=== PATIENT | female | born 1990 | race Caucasian/White ===

== ENCOUNTER 2017-06-18 20:55 | Emergency (ER) | payer OTHER, MEDICAID ==
--- NOTE | 2017-06-18 21:20 | EDM.PDOC ---
<Kayla Galvez - Last Filed: 06/18/17 21:51> ED HPI GENERAL MEDICAL PROBLEM - General Chief Complaint: Upper Extremity Injury/Pain Stated Complaint: PT HURT LT HAND AT WORK Time Seen by Provider: 06/18/17 21:15 Source of Information: Reports: Patient History Limitations: Reports: No Limitations - History of Present Illness INITIAL COMMENTS - FREE TEXT/NARRATIVE: HISTORY AND PHYSICAL: [] 26-year-old female presenting with injury to her left hand fingers History of Present Illness: [] Patient was at work was opening a door and fingers were crushed in the door Incident occurred 1 hour prior to coming to the ED Review of Systems: As per history of present illness and below otherwise all systems reviewed and negative. Past medical history: As per history of present illness and as reviewed below otherwise noncontributory. Surgical history: As per history of present illness and as reviewed below otherwise noncontributory. Social history: No reported history of drug or alcohol abuse. Family history: As per history of present illness and as reviewed below otherwise noncontributory. Physical exam: Alert and oriented nontoxic in appearance answering questions appropriately in full sentences HEENT: Atraumatic, normocehpalic, pupils reactive, negative for conjunctival pallor or scleral icterus, mucous membranes moist, throat clear, neck supple, nontender, trachea midline. Lungs: Clear to auscultation, breath sounds equal bilaterally, chest non tender. Heart: S1S2, regular, negative for clicks, rubs, or JVD. Abdomen: Soft, nondistended, nontender. Negative for masses or hepatossplenmegaly. Negative for costovertebral tenderness. Pelvis: Stable nontender. Genitourinary: Deferred. Rectal: Deferred Extremities: First and second finger on her left hand the distal portion where it was caught in the door, patient states she can't move them due to pain, negative for cords or calf pain. Radial pulses intact, capillary refill less than 2 seconds. Neurovascular unremarkable. Neuro: Awake, alert, oriented. Cranial nerves II through XII unremarkable. Cerebellum unremarkable. Motor and sensory unremarkable throughout. Exam nonfocal. Discussed this case with Dr. David Peterson who will assume care of this patient Diagnostics: []X-ray fingers left hand Therapeutics: [] Impression: [Crush injury to fingers on left hand] Plan: [Discharged to home] Definitive disposition and diagnosis as appropriate pending reevaluation and review of above. 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: - Infectious Disease History Infectious Disease History: Reports: Other (See Below) Other Infectious Disease History: HSV2 - Past Surgical History Female Surgical History: Reports: Section Social & Family History - Family History Family Medical History: Noncontributory Respiratory: Reports: Asthma Endocrine/Metabolic: Reports: Diabetes, type II - Tobacco Use Smoking Status *Q: Current Every Day Smoker Years of Tobacco use: 6 Packs/Tins Daily: 1 - Recreational Drug Use Recreational Drug Use: No Review of Systems - Review of Systems Review Of Systems: ROS reveals no pertinent complaints other than HPI. ED EXAM, GENERAL - Physical Exam Exam: See Below (see dictation) Course - Vital Signs Last Recorded V/S: Last Vital Signs Temp 97.1 F 06/18/17 21:12 Pulse 81 06/18/17 21:12 Resp 18 06/18/17 21:12 BP 105/67 06/18/17 21:12 Pulse Ox 97 06/18/17 21:12 - Orders/Labs/Meds Orders: Active Orders 24 hr Category Date Time Status Fingers Multiple Lt [CR] Stat Exams 06/18/17 21:19 Taken Departure - Departure Time of Disposition: 21:52 Disposition: Home, Self-Care 01 Condition: Good Clinical Impression: Crushing injury of finger of left hand - Discharge Information Referrals: PCP,None [Primary Care Provider] - Forms: ED Department Discharge Additional Instructions: ibuprofen as needed recheck as needed <David Peterson - Last Filed: 06/18/17 23:16> ED HPI GENERAL MEDICAL PROBLEM - History of Present Illness INITIAL COMMENTS - FREE TEXT/NARRATIVE: I spoke with patient and advised that there are no fractures seen on her xrays. Radiology dept reading is pending. Departure - Departure Time of Disposition: 23:15
[2017-06-18 23:20] VITALS: BP 97/56
--- NOTE | 2017-06-21 17:06 | CR ---
EXAM DATE: 06/18/17 PATIENT'S AGE: 26 Patient: DANIEL ROSE Facility: [place], [place] Site . Site : 1990 Study: XRay Extremity Left FINGERS [id number]/22/2017 10:34:47 PM Ordering Physician: Doctor Branch Final Report: INDICATION: Finger pain from crush injury TECHNIQUE: Finger radiographs 3 views left COMPARISON: None FINDINGS: Bones: Alignment is normal. No acute fractures or aggressive bone lesions are identified. Evaluation of the digits are limited by flexion on the frontal and oblique views. Joint spaces: The metacarpophalangeal and interphalangeal joints are normal in appearance. Soft tissues: Unremarkable. No radiopaque foreign bodies are noted. IMPRESSION: 1. No acute osseous injuries are identified. Dictated by Supa Gonzalez MD @ 06/18/2017 11:08:16 PM Dictated by: Supa Gonzalez MD @ 06/18/2017 23:08:18 (Electronic Signature) Report Signed by Proxy. EMY
== END 2017-06-18 23:23 | disposition home or self-care (01) ==
LOC: MW.ED 20:55
DX: S67.191A Crushing injury of left index finger, initial encounter (principal); S67.02XA Crushing injury of left thumb, initial encounter; F17.210 Nicotine dependence, cigarettes, uncomplicated; W23.1XXA Caught, crushed, jammed, or pinched between stationary objects, initial encounter
CPT/HCPCS: 73140-26-LT; 73140-LT; 99282; 99283

== ENCOUNTER 2018-06-18 00:25 | Emergency (ER) | payer MEDICAID, OTHER ==
[2018-06-18] MEDS ORDERED: Sodium Chloride 0.9% 1,000 ML IV ONE (00:27)
[2018-06-18] MEDS ORDERED: Ondansetron 4 MG/2 ML SDV IVPUSH ONE (00:27)
[2018-06-18] MEDS ORDERED: Pantoprazole 40 MG Vial IVPUSH ONE (00:27)
--- NOTE | 2018-06-18 00:29 | EDM.PDOC ---
ED HPI GENERAL MEDICAL PROBLEM - General Chief Complaint: Drug or Alcohol Abuse Stated Complaint: AMBULANCE Time Seen by Provider: 06/18/18 00:29 Source of Information: Reports: Patient, EMS - History of Present Illness INITIAL COMMENTS - FREE TEXT/NARRATIVE: HISTORY AND PHYSICAL: History of present illness: [Patient arrives via ambulance from the bar and is clinically intoxicated Last drink was one half hours prior, she is somewhat belligerent but otherwise in no distress No fever chills sweats no chest pain shortness breath headache dizziness or palpitation no bowel or urine symptoms ] Review of systems: As per history of present illness and below otherwise all systems reviewed and negative. Past medical history: As per history of present illness and as reviewed below otherwise noncontributory. Surgical history: As per history of present illness and as reviewed below otherwise noncontributory. Social history: No reported history of drug or alcohol abuse. Family history: As per history of present illness and as reviewed below otherwise noncontributory. Physical exam: HEENT: Atraumatic, normocephalic, pupils reactive, negative for conjunctival pallor or scleral icterus, mucous membranes moist, throat clear, neck supple, nontender, trachea midline. Lungs: Clear to auscultation, breath sounds equal bilaterally, chest nontender. Heart: S1S2, regular, negative for clicks, rubs, or JVD. Abdomen: Soft, nondistended, nontender. Negative for masses or hepatosplenomegaly. Negative for costovertebral tenderness. Pelvis: Stable nontender. Genitourinary: Deferred. Rectal: Deferred. Extremities: Atraumatic, negative for cords or calf pain. Neurovascular unremarkable. Neuro: Awake, alert, oriented. Cranial nerves II through XII unremarkable. Cerebellum unremarkable. Motor and sensory unremarkable throughout. Exam nonfocal. Diagnostics: [CBC CMP UA drug screen Patient would not provide urine, lower EKG or chest x-ray ] Therapeutics: [1 L normal saline bolus Zofran 8 mg IV ] Prescription for potassium 20 mEq by mouth daily #5 no refill Impression: [Alcohol intoxication Hypokalemia Patient remains alert 1.5 hours after his last drink Discharged in stable condition] Definitive disposition and diagnosis as appropriate pending reevaluation and review of above. - Related Data Allergies Allergy/AdvReac Type Severity Reaction Status Date / Time No Known Allergies Allergy Verified 06/18/18 00:32 Home Meds: Home Meds . 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: - Infectious Disease History Infectious Disease History: Reports: Other (See Below) Other Infectious Disease History: HSV2 - Past Surgical History Female Surgical History: Reports: Section Social & Family History - Family History Family Medical History: Noncontributory Respiratory: Reports: Asthma Endocrine/Metabolic: Reports: Diabetes, type II - Caffeine Use Caffeine Use: Reports: Coffee Caffeine Use Comment: 1-2cups/day ED ROS GENERAL - Review of Systems Review Of Systems: See Below ED EXAM, GENERAL - Physical Exam Exam: See Below Course - Vital Signs Last Recorded V/S: Last Vital Signs Temp 97.1 F 06/18/18 00:26 Pulse 86 06/18/18 00:26 Resp 20 06/18/18 00:26 BP 96/65 06/18/18 00:26 Pulse Ox 98 06/18/18 00:26 - Orders/Labs/Meds Orders: Active Orders 24 hr Category Date Time Status EKG Documentation Completion [RC] STAT Care 06/18/18 00:27 Active Chest 1V Frontal [CR] Stat Exams 06/18/18 00:27 Ordered DRUG SCREEN, URINE [URCHEM] Stat Lab 06/18/18 00:27 Ordered UA W/MICROSCOPIC [URIN] Stat Lab 06/18/18 00:27 Ordered Sodium Chloride 0.9% [Normal Saline] 1,000 ml Med 06/18/18 00:27 Active IV STAT Medication Orders Sodium Chloride (Normal Saline) 1,000 mls @ 999 mls/hr IV STAT ONE Stop: 06/18/18 01:27 Last Admin: 06/18/18 00:40 Dose: 999 mls/hr Labs: Laboratory Tests 06/18/18 06/18/18 Range/Units 00:25 00:25 WBC 10.41 (4.0-11.0) K/uL RBC 4.01 L (4.30-5.90) M/uL Hgb 12.8 (12.0-16.0) g/dL Hct 38.1 (36.0-46.0) % MCV 95.0 (80.0-98.0) fL MCH 31.9 (27.0-32.0) pg MCHC 33.6 (31.0-37.0) g/dL RDW Std Deviation 39.1 (28.0-62.0) fl RDW Coeff [place] 11 (11.0-15.0) % Plt Count 247 (150-400) K/uL MPV 10.60 (7.40-12.00) fL Neut % (Auto) 53.5 (48.0-80.0) % Lymph % (Auto) 37.9 (16.0-40.0) % [place] % (Auto) 7.1 (0.0-15.0) % Eos % (Auto) 1.2 (0.0-7.0) % Baso % (Auto) 0.3 (0.0-1.5) % Neut # (Auto) 5.6 (1.4-5.7) K/uL Lymph # (Auto) 4.0 H (0.6-2.4) K/uL [place] # (Auto) 0.7 (0.0-0.8) K/uL Eos # (Auto) 0.1 (0.0-0.7) K/uL Baso # (Auto) 0.0 (0.0-0.1) K/uL Sodium 139 (136-145) mmol/L Potassium 2.7 L (3.5-5.1) mmol/L Chloride 103 (98-107) mmol/L Carbon Dioxide 23.8 (21.0-32.0) mmol/L BUN 6 L (7.0-18.0) mg/dL Creatinine 0.7 (0.6-1.0) mg/dL Est Cr Clr Drug Dosing 90.96 mL/min Estimated GFR (MDRD) > 60.0 ml/min Glucose 117 H (74-106) mg/dL Calcium 9.2 (8.5-10.1) mg/dL Total Bilirubin 0.2 (0.2-1.0) mg/dL AST 10 L (15-37) IU/L ALT 9 L (14-63) IU/L Alkaline Phosphatase 44 L (46-116) U/L Troponin I < 0.050 (0.000-0.056) ng/mL Total Protein 7.6 (6.4-8.2) g/dL Albumin 4.5 (3.4-5.0) g/dL Globulin 3.1 (2.0-3.5) g/dL Albumin/Globulin Ratio 1.5 (1.3-2.8) Ethyl Alcohol 285 mg/dL Meds: Medications Generic Name Dose Route Start Last Admin Trade Name Freq PRN Reason Stop Dose Admin Sodium Chloride 1,000 mls @ 999 mls/hr 06/18/18 00:27 06/18/18 00:40 Normal Saline IV 06/18/18 01:27 999 mls/hr STAT ONE Administration Discontinued Medications Generic Name Dose Route Start Last Admin Trade Name Freq PRN Reason Stop Dose Admin Ondansetron HCl 8 mg 06/18/18 00:27 06/18/18 00:40 Zofran IVPUSH 06/18/18 00:28 8 mg ONETIME ONE Administration Pantoprazole Sodium 80 mg 06/18/18 00:27 06/18/18 00:40 Protonix Iv IVPUSH 06/18/18 00:28 80 mg .BOLUS ONE Administration Promethazine HCl 25 mg 06/18/18 01:02 Phenergan IM 06/18/18 01:03 ONETIME ONE Departure - Departure Time of Disposition: 01:16 Disposition: Home, Self-Care 01 Condition: Fair Clinical Impression: Alcohol abuse - Discharge Information Forms: ED Department Discharge Additional Instructions: The following information is given to patients seen in the emergency department who are being discharged to home. This information is to outline your options for follow-up care. We provide all patients seen in our emergency department with a follow-up referral. The need for follow-up, as well as the timing and circumstances, are variable depending upon the specifics of your emergency department visit. If you don't have a primary care physician on staff, we will provide you with a referral. We always advise you to contact your personal physician following an emergency department visit to inform them of the circumstance of the visit and for follow-up with them and/or the need for any referrals to a consulting specialist. The emergency department will also refer you to a specialist when appropriate. This referral assures that you have the opportunity for follow-up care with a specialist. All of these measure are taken in an effort to provide you with optimal care, which includes your follow-up. Under all circumstances we always encourage you to contact your private physician who remains a resource for coordinating your care. When calling for follow-up care, please make the office aware that this follow-up is from your recent emergency room visit. If for any reason you are refused follow-up, please contact the [facility] emergency department at and asked to speak to the emergency department charge nurse. - My Orders Last 24 Hours: My Active Orders 06/18/18 00:27 EKG Documentation Completion [RC] STAT Chest 1V Frontal [CR] Stat DRUG SCREEN, URINE [URCHEM] Stat UA W/MICROSCOPIC [URIN] Stat Sodium Chloride 0.9% [Normal Saline] 1,000 ml IV STAT - Assessment/Plan Last 24 Hours: My Active Orders 06/18/18 00:27 EKG Documentation Completion [RC] STAT Chest 1V Frontal [CR] Stat DRUG SCREEN, URINE [URCHEM] Stat UA W/MICROSCOPIC [URIN] Stat Sodium Chloride 0.9% [Normal Saline] 1,000 ml IV STAT
[2018-06-18] MEDS ORDERED: Promethazine 25 MG/ML SDV IM ONE (01:02)
[2018-06-18 01:05] LABS: CHLORIDE,CL 103 mmol/L (98-107); SODIUM,NA 139 mmol/L (136-145)
[2018-06-18] MEDS ORDERED: Potassium Chloride 20 MEQ Tab.ER PO ONE (01:17)
[2018-06-18 01:43] VITALS: BP 106/74
== END 2018-06-18 01:21 | disposition home or self-care (01) ==
LOC: MW.ED 00:25
DX: F10.129 Alcohol abuse with intoxication, unspecified (principal); Y90.8 Blood alcohol level of 240 mg/100 ml or more; E87.6 Hypokalemia
CPT/HCPCS: 80053; 84484; 85025; 96361; 96374; 96375; 99283; A9270; C9113; G0480; J2405; J7040

== ENCOUNTER 2019-07-08 12:04 | Emergency (ER) | payer MEDICAID ==
[2019-07-08 12:18] VITALS: BP 116/65; PULSE 84
--- NOTE | 2019-07-08 12:39 | EDM.PDOC ---
ED HPI GENERAL MEDICAL PROBLEM - General Chief Complaint: General Stated Complaint: CHEST PAIN Time Seen by Provider: 07/08/19 12:09 Source of Information: Reports: Patient History Limitations: Reports: No Limitations - History of Present Illness INITIAL COMMENTS - FREE TEXT/NARRATIVE: HISTORY AND PHYSICAL: History of present illness: Patient is a 28-year-old female who presents to the ED today for concern of right-sided rib/chest pain x 3 days. Patient states she was seen Wednesday at [facility] and was treated for a sinus infection because she is having nasal congestion and cough for about 2 weeks. Patient states she was placed on amoxicillin and is steroid. Patient states she's noticed some relief of her sinus concerns. Patient states starting Wednesday night she began having right- sided rib pain which is worse when she presses on the ribs and patient states seems to be worse at night. Patient denies any trauma or injury to the rib/ chest area. Patient denies any health history or any other symptoms or concerns at this time. Patient denies fever, chills, shortness of breath. Denies headache, neck stiff ness, change in vision, syncope, or near syncope. Denies nausea, vomiting, abdominal pain, diarrhea, constipation, or dysuria. Has not noted any blood in urine or stool. Patient has been eating and drinking appropriately. Review of systems: As per history of present illness and below otherwise all systems reviewed and negative. Past medical history: As per history of present illness and as reviewed below otherwise noncontributory. Surgical history: As per history of present illness and as reviewed below otherwise noncontributory. Social history: See social history for further information Family history: As per history of present illness and as reviewed below otherwise noncontributory. Physical exam: General: Patient is alert, oriented, and in no acute distress. Patient sitting comfortably on exam table. HEENT: Atraumatic, normocephalic, pupils equal and reactive bilaterally, negative for conjunctival pallor or scleral icterus, mucous membranes moist, TMs normal bilaterally, throat clear, neck supple, nontender, trachea midline. No drooling or trismus noted. No meningeal signs. No hot potato voice noted. Lungs: Mild wheezing of the right lower lobe, otherwise clear to auscultation, breath sounds equal bilaterally. Patient does have moderate pain with palpation of ribs 8 and 9 on the right sided anterior surface. Wet cough on exam Heart: S1S2, regular rate and rhythm without overt murmur Abdomen: Soft, nondistended, nontender. Negative for masses or hepatosplenomegaly. Negative for costovertebral tenderness. Pelvis: Stable nontender. Genitourinary: Deferred. Rectal: Deferred. Skin: Intact, warm, dry. No lesions or rashes noted. Extremities: Atraumatic, negative for cords or calf pain. Neurovascular unremarkable. Neuro: Awake, alert, oriented. Cranial nerves II through XII unremarkable. Cerebellum unremarkable. Motor and sensory unremarkable throughout. Exam nonfocal. Notes: Discussed the importance for follow-up with a primary care provider. Voices understanding and is agreeable to plan of care. Denies any further questions or concerns at this time. Diagnostics: CBC, CMP, UA, Uhcg, EKG, CXR, strep, influenza, lipase Therapeutics: None Prescription: Levaquin Impression: Right lower lobe pneumonia Plan: 1. Stop taking Amoxicillin that has been prescribed to you. Take medication as prescribed. 2. You can alternate ibuprofen and Tylenol as directed for pain and discomfort. 3. Follow up with your primary care provider as discussed. Return to the ED as needed and as discussed. Definitive disposition and diagnosis as appropriate pending reevaluation and review of above. 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: - Infectious Disease History Infectious Disease History: Reports: None Other Infectious Disease History: HSV2 - Past Surgical History Head Surgeries/Procedures: Reports: None Female Surgical History: Reports: Section Social & Family History - Family History Family Medical History: Noncontributory Respiratory: Reports: Asthma Endocrine/Metabolic: Reports: Diabetes, type II - Tobacco Use Smoking Status *Q: Current Every Day Smoker Years of Tobacco use: 8 Packs/Tins Daily: 0.2 - Caffeine Use Caffeine Use: Reports: None Caffeine Use Comment: 1-2cups/day - Recreational Drug Use Recreational Drug Use: No ED ROS GENERAL - Review of Systems Review Of Systems: ROS reveals no pertinent complaints other than HPI. ED EXAM, GENERAL - Physical Exam Exam: See Below (See dictation) Course - Vital Signs Last Recorded V/S: Last Vital Signs Temp 97.6 F 07/08/19 12:14 Pulse 84 07/08/19 12:14 Resp 15 07/08/19 12:14 BP 116/65 07/08/19 12:14 Pulse Ox 98 07/08/19 12:14 - Orders/Labs/Meds Orders: Active Orders 24 hr Category Date Time Status EKG Documentation Completion [RC] STAT Care 07/08/19 12:27 Active CULTURE STREP A CONFIRMATION [] Stat Lab 07/08/19 12:42 Results STREP SCRN A RAPID W CULT CONF [] Stat Lab 07/08/19 12:42 Results Labs: Laboratory Tests 07/08/19 07/08/19 07/08/19 Range/Units 12:29 12:29 12:36 WBC 8.36 (4.0-11.0) K/uL RBC 4.25 L (4.30-5.90) M/uL Hgb 13.1 (12.0-16.0) g/dL Hct 40.9 (36.0-46.0) % MCV 96.2 (80.0-98.0) fL MCH 30.8 (27.0-32.0) pg MCHC 32.0 (31.0-37.0) g/dL RDW Std Deviation 44.1 (28.0-62.0) fl RDW Coeff of Lake 13 (11.0-15.0) % Plt Count 291 (150-400) K/uL MPV 10.60 (7.40-12.00) fL Neut % (Auto) 49.2 (48.0-80.0) % Lymph % (Auto) 37.7 (16.0-40.0) % Wheeler % (Auto) 11.5 (0.0-15.0) % Eos % (Auto) 1.1 (0.0-7.0) % Baso % (Auto) 0.5 (0.0-1.5) % Neut # (Auto) 4.1 (1.4-5.7) K/uL Lymph # (Auto) 3.2 H (0.6-2.4) K/uL Wheeler # (Auto) 1.0 H (0.0-0.8) K/uL Eos # (Auto) 0.1 (0.0-0.7) K/uL Baso # (Auto) 0.0 (0.0-0.1) K/uL Nucleated RBC % 0.0 /100WBC Nucleated RBCs # 0 K/uL Sodium (136-145) mmol/L Potassium (3.5-5.1) mmol/L Chloride (98-107) mmol/L Carbon Dioxide (21.0-32.0) mmol/L BUN (7.0-18.0) mg/dL Creatinine (0.6-1.0) mg/dL Est Cr Clr Drug Dosing mL/min Estimated GFR (MDRD) ml/min Glucose (74-106) mg/dL Calcium (8.5-10.1) mg/dL Total Bilirubin (0.2-1.0) mg/dL AST (15-37) IU/L ALT (14-63) IU/L Alkaline Phosphatase (46-116) U/L Troponin I (0.000-0.056) ng/mL Total Protein (6.4-8.2) g/dL Albumin (3.4-5.0) g/dL Globulin (2.6-4.0) g/dL Albumin/Globulin Ratio (0.9-1.6) Lipase (73-393) U/L Urine Color YELLOW Urine Appearance CLEAR Urine pH 7.0 (5.0-8.0) Ur Specific Earleton <= 1.005 (1.001-1.035) Urine Protein NEGATIVE (NEGATIVE) mg/dL Urine Glucose (UA) NEGATIVE (NEGATIVE) mg/dL Urine Ketones NEGATIVE (NEGATIVE) mg/dL Urine Occult Blood NEGATIVE (NEGATIVE) Urine Nitrite NEGATIVE (NEGATIVE) Urine Bilirubin NEGATIVE (NEGATIVE) Urine Urobilinogen 0.2 (<2.0) EU/dL Ur Leukocyte Esterase NEGATIVE (NEGATIVE) Urine HCG, Qual NEGATIVE (NEGATIVE) 07/08/19 07/08/19 Range/Units 12:36 12:36 WBC (4.0-11.0) K/uL RBC (4.30-5.90) M/uL Hgb (12.0-16.0) g/dL Hct (36.0-46.0) % MCV (80.0-98.0) fL MCH (27.0-32.0) pg MCHC (31.0-37.0) g/dL RDW Std Deviation (28.0-62.0) fl RDW Coeff of Lake (11.0-15.0) % Plt Count (150-400) K/uL MPV (7.40-12.00) fL Neut % (Auto) (48.0-80.0) % Lymph % (Auto) (16.0-40.0) % Wheeler % (Auto) (0.0-15.0) % Eos % (Auto) (0.0-7.0) % Baso % (Auto) (0.0-1.5) % Neut # (Auto) (1.4-5.7) K/uL Lymph # (Auto) (0.6-2.4) K/uL Wheeler # (Auto) (0.0-0.8) K/uL Eos # (Auto) (0.0-0.7) K/uL Baso # (Auto) (0.0-0.1) K/uL Nucleated RBC % /100WBC Nucleated RBCs # K/uL Sodium 144 (136-145) mmol/L Potassium 3.5 (3.5-5.1) mmol/L Chloride 105 (98-107) mmol/L Carbon Dioxide 29.1 (21.0-32.0) mmol/L BUN 9 (7.0-18.0) mg/dL Creatinine 0.8 (0.6-1.0) mg/dL Est Cr Clr Drug Dosing 91.57 mL/min Estimated GFR (MDRD) > 60.0 ml/min Glucose 99 (74-106) mg/dL Calcium 9.2 (8.5-10.1) mg/dL Total Bilirubin 0.4 (0.2-1.0) mg/dL AST 9 L (15-37) IU/L ALT 14 (14-63) IU/L Alkaline Phosphatase 54 (46-116) U/L Troponin I < 0.050 (0.000-0.056) ng/mL Total Protein 7.4 (6.4-8.2) g/dL Albumin 3.8 (3.4-5.0) g/dL Globulin 3.6 (2.6-4.0) g/dL Albumin/Globulin Ratio 1.1 (0.9-1.6) Lipase 75 (73-393) U/L Urine Color Urine Appearance Urine pH (5.0-8.0) Ur Specific Earleton (1.001-1.035) Urine Protein (NEGATIVE) mg/dL Urine Glucose (UA) (NEGATIVE) mg/dL Urine Ketones (NEGATIVE) mg/dL Urine Occult Blood (NEGATIVE) Urine Nitrite (NEGATIVE) Urine Bilirubin (NEGATIVE) Urine Urobilinogen (<2.0) EU/dL Ur Leukocyte Esterase (NEGATIVE) Urine HCG, Qual (NEGATIVE) Departure - Departure Time of Disposition: 13:49 Disposition: Home, Self-Care 01 Clinical Impression: Right lower lobe pneumonia Qualifiers: Pneumonia type: due to unspecified organism Qualified Code(s): J18.1 - Lobar pneumonia, unspecified organism - Discharge Information Referrals: PCP,Unknown [Primary Care Provider] - Forms: ED Department Discharge Additional Instructions: The following information is given to patients seen in the emergency department who are being discharged to home. This information is to outline your options for follow-up care. We provide all patients seen in our emergency department with a follow-up referral. The need for follow-up, as well as the timing and circumstances, are variable depending upon the specifics of your emergency department visit. If you don't have a primary care physician on staff, we will provide you with a referral. We always advise you to contact your personal physician following an emergency department visit to inform them of the circumstance of the visit and for follow-up with them and/or the need for any referrals to a consulting specialist. The emergency department will also refer you to a specialist when appropriate. This referral assures that you have the opportunity for follow-up care with a specialist. All of these measure are taken in an effort to provide you with optimal care, which includes your follow-up. Under all circumstances we always encourage you to contact your private physician who remains a resource for coordinating your care. When calling for follow-up care, please make the office aware that this follow-up is from your recent emergency room visit. If for any reason you are refused follow-up, please contact the [facility] Emergency Department at and asked to speak to the emergency department charge nurse. [facility] [address] [place] [address] [facility] [address] [place] [id number] 1. Stop taking Amoxicillin that has been prescribed to you prior. Take medication as prescribed. 2. You can alternate ibuprofen and Tylenol as directed for pain and discomfort. 3. Follow up with your primary care provider as discussed. Return to the ED as needed and as discussed. - My Orders Last 24 Hours: My Active Orders 07/08/19 12:27 EKG Documentation Completion [RC] STAT 07/08/19 12:42 CULTURE STREP A CONFIRMATION [RM] Stat STREP SCRN A RAPID W CULT CONF [] Stat - Assessment/Plan Last 24 Hours: My Active Orders 07/08/19 12:27 EKG Documentation Completion [RC] STAT 07/08/19 12:42 CULTURE STREP A CONFIRMATION [RM] Stat STREP SCRN A RAPID W CULT CONF [] Stat
[2019-07-08 13:12] LABS: BLOOD UREA NITROGEN,BUN 9 mg/dL (7.0-18.0); CARBON DIOXIDE,CO2 29.1 mmol/L (21.0-32.0); CHLORIDE,CL 105 mmol/L (98-107); GLUCOSE RANDOM 99 mg/dL (74-106); POTASSIUM,K 3.5 mmol/L (3.5-5.1); SODIUM,NA 144 mmol/L (136-145)
--- NOTE | 2019-07-08 13:27 | CR ---
INDICATION: Shortness of breath TECHNIQUE: Chest 2 views. COMPARISON: None. FINDINGS: Cardiovascular and mediastinum: Heart size and vasculature are normal in caliber and appearance. Mediastinum is within normal limits. Lungs and pleural spaces: Lungs are clear. No sign of infiltrate or mass. No sign of pleural effusion. No pneumothorax. Bones and soft tissues: No significant findings. IMPRESSION: Unremarkable chest. Dictated by: Gama Melgar MD @ 07/08/2019 13:24:31 (Electronically Signed)
== END 2019-07-08 13:59 | disposition home or self-care (01) ==
LOC: MW.ED 12:04
DX: J18.1 Lobar pneumonia, unspecified organism (principal); F17.210 Nicotine dependence, cigarettes, uncomplicated
CPT/HCPCS: 36415; 71046; 71046-26; 80053; 81003; 81025; 83690; 84484; 85025; 87081; 87804; 87880-QW; 93005; 99284-25

== ENCOUNTER 2021-08-29 16:18 | Day surgery (SDC) | payer MEDICAID ==
[~2021-08-29 16:18] MED LIST: Bupivacaine 0.25% 10 ML SDV ONE
[2021-08-29] MEDS ORDERED: Propofol 200 MG/20 ML SDV ONE (16:31)
[2021-08-29] MEDS ORDERED: Midazolam 1 MG/ML 2 ML SDV ONE (16:31)
[2021-08-29] MEDS ORDERED: fentaNYL 250 MCG/5 ML SDV ONE (16:32)
[2021-08-29] MEDS ORDERED: Glycopyrrolate 0.2 MG/ML SDV ONE (16:33)
[2021-08-29] MEDS ORDERED: Ketorolac 30 MG/ML SDV ONE (16:33)
[2021-08-29] MEDS ORDERED: Ondansetron 4 MG/2 ML SDV ONE ×2 (16:33→20:27)
[2021-08-29] MEDS ORDERED: Rocuronium Bromide 50 MG/5 ML Syringe ONE (16:33)
[2021-08-29] MEDS ORDERED: Sugammadex Sodium 200 MG/2 ML VIAL ONE (16:33)
[2021-08-29] MEDS ORDERED: Lidocaine 2% 5 ML SDV ONE (16:33)
[2021-08-29] MEDS: Lactated Ringers 1,000 ML IV SCH ×2 (17:04→20:57)
[2021-08-29] MEDS ORDERED: Acetaminophen 1,000 MG in Premix Bag 1 BAG IV PRN (17:07)
--- NOTE | 2021-08-29 17:07 | PCM.PREANE ---
Preanesthetic Assessment - Anesthesia/Transfusion/Family Hx Anesthesia History: Prior Anesthesia Without Reaction Family History of Anesthesia Reaction: No Transfusion History: No Prior Transfusion(s) - Review of Systems General: No Symptoms Pulmonary: No Symptoms Cardiovascular: No Symptoms Gastrointestinal: No Symptoms Neurological: No Symptoms Other: Reports: None - Physical Assessment NPO Status Date: 08/29/21 NPO Status Time: 00:05 Vital Signs: Last Vital Signs Temp 37.1 C 08/29/21 16:29 Pulse 87 08/29/21 16:29 Resp 18 08/29/21 16:29 BP 96/63 08/29/21 16:29 Pulse Ox 100 08/29/21 16:29 Height: 1.6 m Weight: 48.308 kg ASA Class: 1E - Lab Values: Laboratory Last Values SARS-CoV-2 RNA (IVY) NEGATIVE (NEGATIVE) 08/29/21 16:20 - Allergies Allergies/Adverse Reactions: Allergies Allergy/AdvReac Type Severity Reaction Status Date / Time No Known Allergies Allergy Verified 08/29/21 16:41 - Acknowledgements Anesthesia Type Planned: General Anesthesia Pt an Appropriate Candidate for the Planned Anesthesia: Yes Alternatives and Risks of Anesthesia Discussed w Pt/Guardian: Yes Pt/Guardian Understands and Agrees with Anesthesia Plan: Yes PreAnesthesia Questionnaire - Past Health History Medical/Surgical History: Denies Medical/Surgical History Gastrointestinal History: Reports: None Genitourinary History: Reports: None 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: Other OB/BYN History: X2 - Infectious Disease History Infectious Disease History: Reports: None Other Infectious Disease History: HSV2 - Past Surgical History Head Surgeries/Procedures: Reports: None Female Surgical History: Reports: Section - SUBSTANCE USE Tobacco Use Status *Q: Never Tobacco User Recreational Drug Use History: No - CURRENT (IN HOUSE) MEDS Current Meds: Current Medications Lactated Ringer's (Ringers, Lactated) 1,000 mls @ 125 mls/hr IV ASDIRECTED RUBINA Discontinued Medications Bupivacaine HCl (Bupivacaine 0.25% 10 Ml Sdv) Confirm Administered Dose 20 ml .ROUTE .STK-MED ONE Stop: 08/29/21 16:17 Fentanyl (Fentanyl 250 Mcg/5 Ml Sdv) Confirm Administered Dose 250 mcg .ROUTE .STK-MED ONE Stop: 08/29/21 16:33 Glycopyrrolate (Glycopyrrolate 0.2 Mg/Ml Sdv) Confirm Administered Dose 0.2 mg .ROUTE .STK-MED ONE Stop: 08/29/21 16:34 Ketorolac Tromethamine (Ketorolac 30 Mg/Ml Sdv) Confirm Administered Dose 30 mg .ROUTE .STK-MED ONE Stop: 08/29/21 16:34 Lidocaine (Lidocaine 2% 5 Ml Sdv) Confirm Administered Dose 5 ml .ROUTE .STK-MED ONE Stop: 08/29/21 16:34 Midazolam HCl (Midazolam 1 Mg/Ml 2 Ml Sdv) Confirm Administered Dose 2 mg .ROUTE .STK-MED ONE Stop: 08/29/21 16:32 Ondansetron HCl (Ondansetron 4 Mg/2 Ml Sdv) Confirm Administered Dose 4 mg .ROUTE .STK-MED ONE Stop: 08/29/21 16:34 Propofol (Propofol 200 Mg/20 Ml Sdv) Confirm Administered Dose 200 mg .ROUTE .STK-MED ONE Stop: 08/29/21 16:32 Rocuronium Dutton (Rocuronium Dutton 50 Mg/5 Ml Syringe) Confirm Administered Dose 50 mg .ROUTE .STK-MED ONE Stop: 08/29/21 16:34 Sugammadex Sodium (Sugammadex Sodium 200 Mg/2 Ml Vial) Confirm Administered Dose 200 mg .ROUTE .STK-MED ONE Stop: 08/29/21 16:34
[2021-08-29] MEDS ORDERED: ceFAZolin 1 GM Vial ONE (19:01)
[2021-08-29] MEDS ORDERED: Water For Injection, Sterile 20 ML ONE (19:01)
[2021-08-29] MEDS: fentaNYL 100 MCG/2 ML SDV IVPUSH PRN ×2 (20:20→20:49)
--- NOTE | 2021-08-29 20:20 | PCM.POSTAN ---
POST ANESTHESIA ASSESSMENT - MENTAL STATUS Mental Status: Alert - VITAL SIGNS Vital Signs: Last Vital Signs Temp 37.1 C 08/29/21 16:29 Pulse 87 08/29/21 16:29 Resp 18 08/29/21 16:29 BP 96/63 08/29/21 16:29 Pulse Ox 100 08/29/21 16:29 - RESPIRATORY Respiratory Status: Respiratory Rate WNL - CARDIOVASCULAR CV Status: Pulse Rate WNL - GASTROINTESTINAL GI Status: No Symptoms - POST OP HYDRATION Hydration Status: Adequate & Stable
[2021-08-29] MEDS ORDERED: Ondansetron 4 MG/2 ML SDV IVPUSH PRN (20:22)
[2021-08-29] MEDS ORDERED: Acetaminophen/oxyCODONE 325-5 MG Tab PO PRN ×2 (20:22)
[2021-08-29] MEDS ORDERED: Promethazine 25 MG/ML SDV IM PRN (20:22)
[2021-08-29] MEDS ORDERED: Morphine 4 MG/ML VIAL IVPUSH PRN (20:22)
[2021-08-29] MEDS ORDERED: Ketorolac 30 MG/ML SDV IVPUSH PRN (20:22)
--- NOTE | 2021-08-29 20:24 | PCM48HPAN ---
Post Anesthesia Note - EVALUATION WITHIN 48HRS OF ANESTHETIC Vital Signs in Normal Range: Yes Patient Participated in Evaluation: Yes Respiratory Function Stable: Yes Airway Patent: Yes Cardiovascular Function Stable: Yes Hydration Status Stable: Yes Pain Control Satisfactory: Yes Nausea and Vomiting Control Satisfactory: Yes Mental Status Recovered: Yes Vital Signs: Last Vital Signs Temp 37.1 C 08/29/21 16:29 Pulse 87 08/29/21 16:29 Resp 18 08/29/21 16:29 BP 96/63 08/29/21 16:29 Pulse Ox 100 08/29/21 16:29
[2021-08-29] MEDS ORDERED: Ketorolac 30 MG/ML SDV IVPUSH ONE (20:30)
--- NOTE | 2021-08-29 20:31 | PCM.OPNOTE ---
- General Post-Op/Procedure Note Date of Surgery/Procedure: 08/29/21 Operative Procedure(s): Dilatation and Curettage. Laparoscopic left Salphingectomy Findings: EUA- 8 weeks sized anteverted uterus Laparoscopy showed left tubal ectopic with ectopic occupying entire left tube Pre Op Diagnosis: Left Ectopic Post-Op Diagnosis: same Anesthesia Technique: General ET Tube Primary Surgeon: Lauri Morales Secondary Surgeon: Kaden Delgado Anesthesia Provider: Bandar Gonzalez Pathology: Left tube with ectopic Endometrial curettings Fluid Replacement, Intraop: 800 EBL in mLs: 20 Complications: None Condition: Good Free Text/Narrative:: Intake & Output 08/29/21 08/29/21 08/29/21 06:59 14:59 22:59 Output Total 100 Balance -100
[2021-08-30] MEDS ORDERED: Ketorolac 30 MG/ML SDV IVPUSH PRN ×2 (00:43→03:00)
[2021-08-30 01:45] VITALS: BP 89/52; PULSE 74
--- NOTE | 2021-08-30 20:51 | OR ---
SURGEON: ANASTACIA GUZMAN DATE OF PROCEDURE: 08/29/2021 PREOPERATIVE DIAGNOSIS: 30-year-old with suspected ectopic . POSTOPERATIVE DIAGNOSIS: 30-year-old with suspected ectopic . PROCEDURE: Laparoscopic left salpingectomy and dilatation and curettage. ESTIMATED BLOOD LOSS: 20. IV FLUIDS: 800. ANESTHESIA: General. CHIEF TALENT OFFICER: Kaden Delgado MD NOTES AND FINDINGS: EUA showed about 8-week size anteverted uterus. The laparoscopy showed left- sided ectopic with ectopic occupying entire left tube. BRIEF HISTORY ABOUT THE PATIENT: Patient came in for an appointment secondary to spotting in . She had an ultrasound done, which showed a complex mass in the left adnexa. No intrauterine was seen, however, endometrium had some cystic areas within it. HCG was done, was 11,000, and progesterone was 6. As a result, patient was counseled for laparoscopic salpingectomy with dilatation and curettage, and patient agreed. DESCRIPTION OF PROCEDURE: Patient was taken to the operating room where general anesthesia was performed without difficulty. She was prepared and draped in the dorsal lithotomy position with the Yamil stirrups. The cervix was exposed with a speculum. The anterior lip of the cervix was grasped with an Allis. The cervical os was dilated to accommodate the uterine manipulator, which was placed without difficulty. Then, attention was placed to the abdomen. An umbilical incision was made after injection of 0.25% Marcaine. The abdomen was entered in with low pressure with the fiberoptic trocar. Entry was confirmed with a low intraabdominal pressure. Pneumoperitoneum was obtained up to 15 mmHg. Then, right and left lower quadrant ports were placed in 2 fingerbreadths medial and superior to the anterior superior iliac spine. The tube was grabbed at the fimbrial end and cut and coagulated with the LigaSure device all the way to the cornua. The incision was checked, was noted to be hemostatic. The abdomen was irrigated and fluid was removed. Then, a 12 mm trocar was placed in at the umbilicus after extension of the umbilical incision. The bag was now placed and the specimen was placed in the bag and removed without any difficulty. The umbilical incision was then closed with a Michael-Goins. All the trocars were removed. Incision was closed with 3-0 Monocryl. Attention was then placed to the cervix where the sharp curettage was done. Specimen was sent for pathology. The patient was awoken from general anesthesia, was taken to recovery room in stable condition. She will follow up with Dr. Lepe in 2 weeks. EMMA SIMMS /[id number] MTDD
== END 2021-08-30 02:05 | disposition home or self-care (01) ==
LOC: MW.SDS 16:18 → MW.MS 16:18 → MW.SDS 08-30 02:05
PROVIDERS: ATTEND Obstetrics & Gynecology
DX: O00.102 Left tubal pregnancy without intrauterine pregnancy (principal); F17.210 Nicotine dependence, cigarettes, uncomplicated; O26.851 Spotting complicating pregnancy, first trimester; Z01.812 Encounter for preprocedural laboratory examination; Z98.890 Other specified postprocedural states; Z79.899 Other long term (current) drug therapy; Z20.822 Contact with and (suspected) exposure to COVID-19
CPT/HCPCS: 59151; 87635; J0131; J0690; J1885; J2250; J2370; J2405; J2704; J3010; J3490; J7030; J7120; 00840; U0002

== ENCOUNTER 2021-09-29 17:50 | Emergency (ER) | payer MEDICAID ==
[2021-09-29] MEDS ORDERED: Sodium Chloride 0.9% 10 ML Syringe FLUSH PRN (19:31)
[2021-09-29] MEDS ORDERED: Sodium Chloride 0.9% 2.5 ML Syringe FLUSH PRN (19:31)
--- NOTE | 2021-09-29 20:04 | US ---
INDICATION: Vaginal bleeding, recent surgery for ectopic COMPARISON: None TECHNIQUE: Multiple grayscale sonographic images of the pelvis. Scanning was performed transabdominally and transvaginally. FINDINGS: The uterus measures 7.7 x 5.0 x 4.0 cm. There is normal myometrial echotexture. The endometrial stripe is normal in thickness, measuring up to 0.4 cm. The right ovary measures 3.1 x 1 x 2.2 cm. The left ovary measures 2.9 x 2.1 x 2.0 cm. Normal follicular changes are demonstrated bilaterally. Intact vascular flow is demonstrated to both ovaries by spectral Doppler interrogation. No significant free fluid is demonstrated in the pelvis. Limited views of the urinary bladder grossly unremarkable. IMPRESSION: Unremarkable sonographic appearance of the uterus and ovaries. Dictated by Felisa Rodríguez MD @ 09/29/2021 8:03:11 PM (Electronically Signed)
[2021-09-29 21:08] LABS: BLOOD UREA NITROGEN,BUN 10 mg/dL (7.0-18.0); CARBON DIOXIDE,CO2 27.4 mmol/L (21.0-32.0); CHLORIDE,CL 103 mmol/L (98-107); GLUCOSE RANDOM 97 mg/dL (74-106); POTASSIUM,K 4.6 mmol/L (3.5-5.1); SODIUM,NA 139 mmol/L (136-145)
--- NOTE | 2021-09-29 22:07 | EDM.PDOC ---
ED HPI GENERAL MEDICAL PROBLEM - General Chief Complaint: LIFE EDUCATOR Problem Stated Complaint: HEAVY BLEEDING Time Seen by Provider: 09/29/21 19:54 Source of Information: Reports: Patient History Limitations: Reports: No Limitations - History of Present Illness INITIAL COMMENTS - FREE TEXT/NARRATIVE: HISTORY AND PHYSICAL: History of present illness: Patient is a 30-year-old female who presents emergency room today with concern of heavy vaginal bleeding during her menstrual cycle over the past 3 days. Patient states that she has been bleeding through a tampon and a pad every hour and has been doing this consistently for the past 3 days. Patient states that she called her LIFE EDUCATOR provider and was instructed to come here to the emergency room due to the heavy bleeding. Patient states that in August, she had an ectopic at 9 weeks when they discovered it and states that she had to have surgery and had her left tube removed as a result. Patient states that she had some bleeding immediately following the surgery and the account of that is her first menstrual cycle. Patient states that however, this is her first actual menstrual cycle since the surgery. Patient states that she does not typically have heavy vaginal bleeding with her menstrual cycles and this is not typical for her. Patient denies any associated pain or discomfort. Patient denies fever, chills, chest pain, shortness of breath, or cough. Denies headache, neck stiff ness, change in vision, syncope, or near syncope. Denies nausea, vomiting, abdominal pain, diarrhea, constipation, or dysuria. Has not noted any blood in urine or stool. Patient has been eating and drinking appropriately. Review of systems: As per history of present illness and below otherwise all systems reviewed and negative. Past medical history: As per history of present illness and as reviewed below otherwise noncontributory. Surgical history: As per history of present illness and as reviewed below otherwise noncontributory. Social history: See social history for further information Family history: As per history of present illness and as reviewed below otherwise noncontributory. Physical exam: General: Patient is alert, oriented, and in no acute distress. Patient sitting comfortably on exam table. Vitals stable and reviewed by me. HEENT: Atraumatic, normocephalic, pupils equal and reactive bilaterally, negative for conjunctival pallor or scleral icterus, mucous membranes moist, throat clear, neck supple, nontender, trachea midline. No drooling or trismus noted. No meningeal signs. No hot potato voice noted. Lungs: Clear to auscultation, breath sounds equal bilaterally, chest nontender. Heart: S1S2, regular rate and rhythm without overt murmur Abdomen: Soft, nondistended, nontender. Negative for masses or hepatosplenomegaly. Negative for costovertebral tenderness. Pelvis: Stable nontender. Genitourinary: exam performed by DEANN Mcnair PA-C observed and supervised directly by me. External genitalia grossly unremarkable. There is a small - moderate amount of dark red blood in the vaginal vault with bleeding noted from the cervical os. Cervix is nontender. Uterus nontender. Rectal: Deferred. Skin: Intact, warm, dry. No lesions or rashes noted. Extremities: Atraumatic, negative for cords or calf pain. Neurovascular unremarkable. Neuro: Awake, alert, oriented. Cranial nerves II through XII unremarkable. Cerebellum unremarkable. Motor and sensory unremarkable throughout. Exam nonfocal. Medical Decision Making: Patient is an otherwise healthy 30 year old female who presents to the ED today with concern of menorrhagia with 1 tampon/1 pad per hour x 3 days with recent post op from ectopic in august. On arrival to the ED, patient is vitally stable and well-appearing on exam. exam does show that patient is having a small to moderate amount of dark red blood in the vaginal vault noted from the cervical os, remainder of exam is unremarkable. Will obtain lab work, transvaginal ultrasound. CBC does show red blood cells are mildly decreased at 3.85, however hemoglobin and hematocrit are within normal limits. CMP mild derangements are unremar kable. hCG is negative. Urinalysis does show 40 red blood cells, is otherwise negative. Transvaginal ultrasound unremarkable. Repeat H&H stable. I did call and speak to Dr. Josiane Lepe, LIFE EDUCATOR provider for [facility]. He would like patient to follow-up in the clinic and the nurse will call her tomorrow for an appointment time. Strict return precautions thoroughly discussed with patient. Discussed importance for follow-up with her LIFE EDUCATOR provider. Voices understanding and is agreeable to plan of care. Denies any further questions or concerns at this time. Diagnostics: CBC, CMP, hCG, urinalysis, transvaginal ultrasound repeat H&H Therapeutics: None Prescription: None Impression: Menorrhagia Plan: Follow-up with your LIFE EDUCATOR provider as discussed. Return to the ED as needed a nd as discussed. Definitive disposition and diagnosis as appropriate pending reevaluation and review of above. RLQ abd Pain Score (Numeric/FACES): 4 - Related Data Allergies Allergy/AdvReac Type Severity Reaction Status Date / Time No Known Allergies Allergy Verified 09/29/21 18:06 Home Meds: Home Meds . [No Known Home Meds] 09/29/21 [History] Past Medical History - Past Health History Medical/Surgical History: Denies Medical/Surgical History HEENT History: Reports: None Cardiovascular History: Reports: None Respiratory History: Reports: None Gastrointestinal History: Reports: None Genitourinary History: Reports: None LIFE EDUCATOR History: Reports: Ectopic , Other LIFE EDUCATOR History: X2 Musculoskeletal History: Reports: None Neurological History: Reports: None Psychiatric History: Reports: None Endocrine/Metabolic History: Reports: None Hematologic History: Reports: None Oncologic (Cancer) History: Reports: None Dermatologic History: Reports: None - Infectious Disease History Infectious Disease History: Reports: Chicken Pox, Herpes Other Infectious Disease History: HSV2 - Past Surgical History Head Surgeries/Procedures: Reports: None HEENT Surgical History: Reports: None Female Surgical History: Reports: Section, Other (See Below) Other Female Surgeries/Procedures: Surgical intervention for ectopic 08/2020 Social & Family History - Family History Family Medical History: No Pertinent Family History Respiratory: Reports: Asthma Endocrine/Metabolic: Reports: Diabetes, type II - Caffeine Use Caffeine Use: Reports: Coffee Caffeine Use Comment: 1-2cups/day - Recreational Drug Use Recreational Drug Use: No ED ROS GENERAL - Review of Systems Review Of Systems: Comprehensive ROS is negative, except as noted in HPI. ED EXAM, GENERAL - Physical Exam Exam: See Below (see dictation) Course - Vital Signs Last Recorded V/S: Last Vital Signs Temp 99.1 F 09/29/21 18:07 Pulse 94 09/29/21 20:33 Resp 18 09/29/21 18:07 BP 96/59 L 09/29/21 20:33 Pulse Ox 98 09/29/21 20:33 - Orders/Labs/Meds Orders: Active Orders 24 hr Category Date Time Status Sodium Chloride 0.9% [Saline Flush] Med 09/29/21 19:31 Active 10 ml FLUSH ASDIRECTED PRN Sodium Chloride 0.9% [Saline Flush] Med 09/29/21 19:31 Active 2.5 ml FLUSH ASDIRECTED PRN Saline Lock Insert [OM.PC] Stat Oth 09/29/21 19:31 Ordered Medication Orders Sodium Chloride (Sodium Chloride 0.9% 10 Ml Syringe) 10 ml FLUSH ASDIRECTED PRN PRN Reason: Keep Vein Open Sodium Chloride (Sodium Chloride 0.9% 2.5 Ml Syringe) 2.5 ml FLUSH ASDIRECTED PRN PRN Reason: Keep Vein Open Labs: Laboratory Tests 09/29/21 09/29/21 09/29/21 Range/Units 18:32 20:32 20:32 WBC 7.31 (4.0-11.0) K/uL RBC 3.85 L (4.30-5.90) M/uL Hgb 12.1 (12.0-16.0) g/dL Hct 36.8 (36.0-46.0) % MCV 95.6 (80.0-98.0) fL MCH 31.4 (27.0-32.0) pg MCHC 32.9 (31.0-37.0) g/dL RDW Std Deviation 44.0 (28.0-62.0) fl RDW [place]eff [place] 13 (11.0-15.0) % Plt Count 221 (150-400) K/uL MPV 11.10 (7.40-12.00) fL Neut % (Auto) 64.3 (48.0-80.0) % Lymph % (Auto) 22.3 (16.0-40.0) % [place] % (Auto) 10.9 (0.0-15.0) % Eos % (Auto) 2.1 (0.0-7.0) % Baso % (Auto) 0.4 (0.0-1.5) % Neut # (Auto) 4.7 (1.4-5.7) K/uL Lymph # (Auto) 1.6 (0.6-2.4) K/uL [place] # (Auto) 0.8 (0.0-0.8) K/uL Eos # (Auto) 0.2 (0.0-0.7) K/uL Baso # (Auto) 0.0 (0.0-0.1) K/uL Nucleated RBC % 0.0 /100WBC Nucleated RBCs # 0 K/uL Sodium 139 (136-145) mmol/L Potassium 4.6 (3.5-5.1) mmol/L Chloride 103 (98-107) mmol/L Carbon Dioxide 27.4 (21.0-32.0) mmol/L BUN 10 (7.0-18.0) mg/dL Creatinine 0.6 (0.6-1.0) mg/dL Est Cr Clr Drug Dosing 108.95 mL/min Estimated GFR (MDRD) > 60.0 ml/min Glucose 97 (74-106) mg/dL Calcium 9.1 (8.5-10.1) mg/dL Total Bilirubin 0.1 L (0.2-1.0) mg/dL AST 59 H (15-37) IU/L ALT 56 (14-63) IU/L Alkaline Phosphatase 59 (46-116) U/L Total Protein 7.2 (6.4-8.2) g/dL Albumin 3.9 (3.4-5.0) g/dL Globulin 3.3 (2.6-4.0) g/dL Albumin/Globulin Ratio 1.2 (0.9-1.6) HCG, Qual (NEG) Urine Color ORANGE Urine Appearance SLT CLOUDY Urine pH 7.0 (5.0-8.0) Ur Specific [employer] 1.020 (1.001-1.035) Urine Protein NEGATIVE (NEGATIVE) mg/dL Urine Glucose (UA) NEGATIVE (NEGATIVE) mg/dL Urine Ketones NEGATIVE (NEGATIVE) mg/dL Urine Occult Blood LARGE H (NEGATIVE) Urine Nitrite NEGATIVE (NEGATIVE) Urine Bilirubin NEGATIVE (NEGATIVE) Urine Urobilinogen 0.2 (<2.0) EU/dL Ur Leukocyte Esterase NEGATIVE (NEGATIVE) Urine RBC 30-40 (0-2/HPF) Urine WBC 0-3 (0-5/HPF) Ur Epithelial Cells RARE (NONE-FEW) Urine Bacteria FEW (NEGATIVE) 09/29/21 09/29/21 Range/Units 20:32 21:38 WBC (4.0-11.0) K/uL RBC (4.30-5.90) M/uL Hgb 12.7 (12.0-16.0) g/dL Hct 38.8 (36.0-46.0) % MCV (80.0-98.0) fL MCH (27.0-32.0) pg MCHC (31.0-37.0) g/dL RDW Std Deviation (28.0-62.0) fl RDW [place] (11.0-15.0) % Plt Count (150-400) K/uL MPV (7.40-12.00) fL Neut % (Auto) (48.0-80.0) % Lymph % (Auto) (16.0-40.0) % [place] % (Auto) (0.0-15.0) % Eos % (Auto) (0.0-7.0) % Baso % (Auto) (0.0-1.5) % Neut # (Auto) (1.4-5.7) K/uL Lymph # (Auto) (0.6-2.4) K/uL [place] # (Auto) (0.0-0.8) K/uL Eos # (Auto) (0.0-0.7) K/uL Baso # (Auto) (0.0-0.1) K/uL Nucleated RBC % /100WBC Nucleated RBCs # K/uL Sodium (136-145) mmol/L Potassium (3.5-5.1) mmol/L Chloride (98-107) mmol/L Carbon Dioxide (21.0-32.0) mmol/L BUN (7.0-18.0) mg/dL Creatinine (0.6-1.0) mg/dL Est Cr Clr Drug Dosing mL/min Estimated GFR (MDRD) ml/min Glucose (74-106) mg/dL Calcium (8.5-10.1) mg/dL Total Bilirubin (0.2-1.0) mg/dL AST (15-37) IU/L ALT (14-63) IU/L Alkaline Phosphatase (46-116) U/L Total Protein (6.4-8.2) g/dL Albumin (3.4-5.0) g/dL Globulin (2.6-4.0) g/dL Albumin/Globulin Ratio (0.9-1.6) HCG, Qual NEGATIVE (NEG) Urine Color Urine Appearance Urine pH (5.0-8.0) Ur Specific [employer] (1.001-1.035) Urine Protein (NEGATIVE) mg/dL Urine Glucose (UA) (NEGATIVE) mg/dL Urine Ketones (NEGATIVE) mg/dL Urine Occult Blood (NEGATIVE) Urine Nitrite (NEGATIVE) Urine Bilirubin (NEGATIVE) Urine Urobilinogen (<2.0) EU/dL Ur Leukocyte Esterase (NEGATIVE) Urine RBC (0-2/HPF) Urine WBC (0-5/HPF) Ur Epithelial Cells (NONE-FEW) Urine Bacteria (NEGATIVE) Meds: Medications Generic Name Dose Route Start Last Admin Trade Name Freq PRN Reason Stop Dose Admin Sodium Chloride 10 ml 09/29/21 19:31 Sodium Chloride 0.9% 10 Ml Syringe FLUSH ASDIRECTED PRN Keep Vein Open Sodium Chloride 2.5 ml 09/29/21 19:31 Sodium Chloride 0.9% 2.5 Ml Syringe FLUSH ASDIRECTED PRN Keep Vein Open Departure - Departure Time of Disposition: 22:06 Disposition: Home, Self-Care 01 Clinical Impression: Menorrhagia - Discharge Information Referrals: Alphonso Steel MD [Primary Care Provider] - Forms: ED Department Discharge Additional Instructions: The following information is given to patients seen in the emergency department who are being discharged to home. This information is to outline your options for follow-up care. We provide all patients seen in our emergency department with a follow-up referral. The need for follow-up, as well as the timing and circumstances, are variable depending upon the specifics of your emergency department visit. If you don't have a primary care physician on staff, we will provide you with a referral. We always advise you to contact your personal physician following an emergency department visit to inform them of the circumstance of the visit and for follow-up with them and/or the need for any referrals to a consulting specialist. The emergency department will also refer you to a specialist when appropriate. This referral assures that you have the opportunity for follow-up care with a specialist. All of these measure are taken in an effort to provide you with optimal care, which includes your follow-up. Under all circumstances we always encourage you to contact your private physician who remains a resource for coordinating your care. When calling for follow-up care, please make the office aware that this follow-up is from your recent emergency room visit. If for any reason you are refused follow-up, please contact the [facility] Emergency Department at and asked to speak to the emergency department charge nurse. [facility] [address] [place] [id number] Follow-up with your LIFE EDUCATOR provider as discussed. Return to the ED as needed and as discussed. Sepsis Event Note (ED) - Evaluation Sepsis Screening Result: No Definite Risk - Focused Exam Vital Signs: Vital Signs Temp Pulse Resp BP Pulse Ox 09/29/21 20:33 94 96/59 L 98 09/29/21 18:07 99.1 F 103 H 18 104/58 L 98 - My Orders Last 24 Hours: My Active Orders 09/29/21 19:31 Sodium Chloride 0.9% [Saline Flush] 10 ml FLUSH ASDIRECTED PRN Sodium Chloride 0.9% [Saline Flush] 2.5 ml FLUSH ASDIRECTED PRN Saline Lock Insert [OM.PC] Stat - Assessment/Plan Last 24 Hours: My Active Orders 09/29/21 19:31 Sodium Chloride 0.9% [Saline Flush] 10 ml FLUSH ASDIRECTED PRN Sodium Chloride 0.9% [Saline Flush] 2.5 ml FLUSH ASDIRECTED PRN Saline Lock Insert [OM.PC] Stat
[2021-09-29 22:43] VITALS: BP 99/72; PULSE 73
== END 2021-09-29 22:43 | disposition home or self-care (01) ==
LOC: MW.ED 17:50
DX: N92.0 Excessive and frequent menstruation with regular cycle (principal)
CPT/HCPCS: 36415; 76830; 76830-26; 80053; 81001; 84703; 85014; 85018; 85025; 99284-25

== ENCOUNTER 2022-04-09 07:31 | Day surgery (SDC) | payer MEDICAID ==
[2022-04-09] MEDS ORDERED: Albuterol 0.083% 2.5 MG/3 ML Neb Soln NEB PRN (08:12)
[2022-04-09] MEDS ORDERED: HYDROmorphone 1 MG/ML Syringe IVPUSH PRN (08:12)
[2022-04-09] MEDS ORDERED: Metoclopramide 10 MG/2 ML SDV IVPUSH PRN (08:12)
[2022-04-09] MEDS ORDERED: Ondansetron 4 MG/2 ML SDV IVPUSH PRN (08:12)
[2022-04-09] MEDS ORDERED: fentaNYL 50 MCG/ML SDV IVPUSH PRN (08:12)
[2022-04-09] MEDS ORDERED: Naloxone 0.4 MG/ML SDV IVPUSH PRN (08:12)
[2022-04-09] MEDS ORDERED: propofoL 100 ML ONE (08:39)
[2022-04-09] MEDS ORDERED: Scopolamine 1.5 MG Transdermal Patch ONE (08:41)
[2022-04-09] MEDS ORDERED: Ondansetron 4 MG/2 ML SDV ONE (08:41)
[2022-04-09] MEDS ORDERED: Lidocaine 2% 5 ML SDV ONE (08:41)
[2022-04-09] MEDS ORDERED: Rocuronium 100 MG/10 ML MDV ONE (08:41)
[2022-04-09] MEDS ORDERED: Dexmedetomidine 200 MCG/2 ML SDV ONE (08:41)
[2022-04-09] MEDS ORDERED: fentaNYL 100 MCG/2 ML SDV ONE (09:00)
[2022-04-09] MEDS ORDERED: ceFAZolin 1 GM Vial ONE (09:13)
[2022-04-09] MEDS ORDERED: Methylene Blue 50 MG/10 ML Ampule ONE (09:22)
[2022-04-09] MEDS ORDERED: Octyl 2-Cyanoacrylate 1 Tube ONE (11:14)
[2022-04-09] MEDS ORDERED: Sugammadex Sodium 200 MG/2 ML VIAL ONE (12:15)
[2022-04-09] MEDS ORDERED: Ketorolac 30 MG/ML SDV ONE (12:15)
[2022-04-09 13:45] VITALS: BP 98/62; PULSE 68
== END 2022-04-09 14:09 | disposition home or self-care (01) ==
LOC: MW.SDS 07:31
PROVIDERS: ATTEND Obstetrics & Gynecology
DX: N97.1 Female infertility of tubal origin (principal); N83.9 Noninflammatory disorder of ovary, fallopian tube and broad ligament, unspecified; F17.210 Nicotine dependence, cigarettes, uncomplicated; Z90.79 Acquired absence of other genital organ(s)
CPT/HCPCS: 49320; 58350; 58555; A9270; J0131; J0690; J1885; J2405; J2704; J3010; J3490; 00840

== ENCOUNTER 2023-06-10 10:48 | Inpatient (IN) | payer MEDICAID ==
[2023-06-10] MEDS ORDERED: Sodium Chloride 0.9% 10 ML Syringe FLUSH PRN (13:55)
[2023-06-10] MEDS ORDERED: Sodium Chloride 0.9% 2.5 ML Syringe FLUSH PRN (13:55)
[2023-06-10] MEDS ORDERED: Sodium Chloride 0.9% 20 ML SDV IV PRN (13:55)
[2023-06-10] MEDS ORDERED: ceFAZolin 2 GM in Sodium Chloride 0.9% 50 ML IV ONE (13:55)
[2023-06-10] MEDS ORDERED: Citric Acid/Sodium Citrate Solution 30 ML Cup PO ONE (13:55)
[2023-06-10] MEDS ORDERED: Oxytocin/0.9 % Sodium Chloride 30 UNIT/500 ML BAG IV SCH ×2 (14:00→15:30)
[2023-06-10] MEDS ORDERED: Lactated Ringers 1,000 ML IV SCH ×2 (14:00→15:30)
[2023-06-10 14:19] LABS: HEMATOCRIT 38.3 % (36.0-46.0); HEMOGLOBIN 12.7 g/dL (12.0-16.0); MEAN CORPUSCULAR HEMOGLOBIN 31.6 pg (27.0-32.0); MEAN CORPUSCULAR HGB CONC 33.2 g/dL (31.0-37.0); MEAN CORPUSCULAR VOLUME 95.3 fL (80.0-98.0); MEAN PLATELET VOLUME 10.4 fL (7.40-12.00); RED BLOOD CELL COUNT 4.02 M/uL (4.30-5.90); WHITE BLOOD CELL COUNT,WBC 8.7 K/uL (4.0-11.0)
[2023-06-10] MEDS ORDERED: Ropivacaine 0.5% 5 MG/ML 30 ML SDV ONE (14:32)
[2023-06-10] MEDS ORDERED: Oxytocin 10 Units/1 ML SDV ONE (14:32)
[2023-06-10] MEDS ORDERED: Dexamethasone 4 MG/ML 5 ML MDV ONE (14:32)
[2023-06-10] MEDS ORDERED: Ondansetron 4 MG/2 ML SDV ONE (14:32)
[2023-06-10] MEDS ORDERED: fentaNYL 100 MCG/2 ML SDV ONE (14:32)
[2023-06-10] MEDS ORDERED: Ketorolac 30 MG/ML SDV ONE (14:32)
[2023-06-10] MEDS ORDERED: ceFAZolin 1 GM Vial ONE (14:32)
[2023-06-10] MEDS ORDERED: Morphine PF 10 MG/10 ML SDV ONE (14:32)
[2023-06-10] MEDS ORDERED: Acetaminophen/oxyCODONE 325-5 MG Tab PO PRN ×3 (15:21→16:53)
[2023-06-10] MEDS ORDERED: Misoprostol 200 MCG Tab RECTAL PRN (15:21)
[2023-06-10] MEDS ORDERED: Bisacodyl 10 MG Supp RECTAL PRN (15:21)
[2023-06-10] MEDS ORDERED: Lanolin 100% Cream 7 GM Tube TOP PRN (15:21)
[2023-06-10] MEDS ORDERED: diphenhydrAMINE 50 MG/ML SDV IVPUSH PRN ×2 (15:21→16:53)
[2023-06-10] MEDS ORDERED: Oxytocin 10 Units/1 ML SDV IM PRN (15:21)
[2023-06-10] MEDS ORDERED: Methylergonovine 0.2 MG/1 ML Amp IM PRN (15:21)
[2023-06-10] MEDS ORDERED: ePHEDrine 50 MG/ML SDV IVPUSH PRN (16:53)
[2023-06-10] MEDS ORDERED: Ondansetron 4 MG/2 ML SDV IVPUSH PRN ×2 (16:53)
[2023-06-10] MEDS ORDERED: droPERidol 5 MG/2 ML SDV IVPUSH PRN (16:53)
[2023-06-10] MEDS ORDERED: Albuterol 0.083% 2.5 MG/3 ML Neb Soln NEB PRN (16:53)
[2023-06-10] MEDS ORDERED: Naloxone 0.4 MG/ML SDV IVPUSH PRN (16:53)
[2023-06-10] MEDS ORDERED: fentaNYL 100 MCG/2 ML SDV IVPUSH PRN (16:53)
[2023-06-10] MEDS ORDERED: HYDROmorphone 1 MG/ML Syringe IVPUSH PRN (16:53)
[2023-06-10] MEDS ORDERED: Morphine 2 MG/ML SYRINGE IVPUSH PRN (16:53)
[2023-06-10] MEDS ORDERED: Metoclopramide 10 MG/2 ML SDV IVPUSH PRN (16:53)
[2023-06-10] MEDS ORDERED: fentaNYL 50 MCG/ML SDV IVPUSH PRN (16:53)
[2023-06-10] MEDS: Ondansetron 4 MG/2 ML SDV IVPUSH PRN ×2 (18:46→22:49)
[2023-06-10] MEDS: Docusate Sodium 100 MG Cap PO SCH (21:00)
[2023-06-10] MEDS: Ketorolac 30 MG/ML SDV IVPUSH SCH (21:18)
[2023-06-11] MEDS: Ketorolac 30 MG/ML SDV IVPUSH SCH ×3 (02:59→14:59)
[2023-06-11 07:07] LABS: HEMATOCRIT 33.5 % (36.0-46.0)
[2023-06-11] MEDS: Docusate Sodium 100 MG Cap PO SCH ×2 (09:05→20:13)
[2023-06-11] MEDS ORDERED: Ibuprofen 800 MG Tab PO PRN (21:00)
[2023-06-12] MEDS: Docusate Sodium 100 MG Cap PO SCH (08:34)
[2023-06-12] MEDS ORDERED: Acetaminophen 325 MG Tab PO PRN (08:50)
[2023-06-12 08:56] VITALS: BP 97/59; PULSE 60
[2023-06-12] MEDS ORDERED: Acetaminophen 500 MG Tab PO PRN (09:13)
== END 2023-06-12 12:59 | disposition home or self-care (01) | DRG 788 ==
LOC: MW.OBCHECK 10:48 → MW.OB 10:48 → MW.OBCHECK 15:21 → MW.OB 23:20
PROVIDERS: ADMIT Obstetrics & Gynecology Obstetrics; ATTEND Obstetrics & Gynecology Obstetrics
PROC: 10D00Z1 Extraction of Products of Conception, Low, Open Approach (ICD-10-PCS; principal; 2023-06-10)
DX: O34.211 Maternal care for low transverse scar from previous cesarean delivery (principal); O24.420 Gestational diabetes mellitus in childbirth, diet controlled; Z37.0 Single live birth; Z3A.38 38 weeks gestation of pregnancy; Z83.3 Family history of diabetes mellitus
CPT/HCPCS: 36415; 85014; 85018; 85027; 86592; 86850; 86900; 86901; A9270-GY; J0131; J0690; J1100; J1885; J2274; J2405; J2590; J2795; J3010